=== PATIENT | male | born 1990 | race Two or more races ===

== ENCOUNTER 2023-01-01 06:10 | Day surgery (SDC) | payer OTHER ==
[~2023-01-01 06:10] MED LIST: CAPECITABINE PO; LEVOTHYROXINE25 MCG PO
[2023-01-01] MEDS ORDERED: TRAM1TAB98 PO (09:52)
== END 2023-01-01 12:05 | disposition home or self-care (01) ==
LOC: CIR.AMB 06:10
PROVIDERS: ATTEND Surgery
DX: C19 Malignant neoplasm of rectosigmoid junction (principal); C20 Malignant neoplasm of rectum; I10 Essential (primary) hypertension; Z20.822 Contact with and (suspected) exposure to COVID-19

== ENCOUNTER 2024-05-08 11:45 | Inpatient (IN) | payer OTHER ==
[~2024-05-08 11:45] MED LIST changes: +HYOSCYAMINE0.125 M1 SL; +IMODIUM A-D2 M2 PO; +PEPCID AC20 MG PO; +TRAM1TAB98 PO
[2024-05-15] MEDS ORDERED: OxyCODONE HCL 5 MG TABLET (ROXICODONE) PO PRN (13:15)
[2024-05-15] MEDS ORDERED: MORPHINE SULFATE 4 MG/ML CARTRIDGE IV PRN (13:15)
[2024-05-15] MEDS ORDERED: 0.9 % SODIUM CHLORIDE 1,000 ML IV SCH (13:15)
[2024-05-15] MEDS ORDERED: ONDANSETRON HCL 2 MG/ML VIAL IV PRN (13:15)
[2024-05-15] MEDS ORDERED: DEXTROSE 50 % IN WATER 0.5 G/ML DISP.SYRIN IV PRN (13:15)
[2024-05-15] MEDS ORDERED: CHLORHEXIDINE GLUCONATE 120 ML BOTTLE TOP ONE (13:30)
[2024-05-15] MEDS ORDERED: CEFTRIAXONE SODIUM 2,000 MG VIAL IV ONE (13:30)
[2024-05-15] MEDS ORDERED: METRONIDAZOLE/SODIUM CHLORIDE 500 MG/100 ML PIGGYBACK IV ONE (13:30)
[2024-05-15] MEDS ORDERED: ACETAMINOPHEN 500 MG GEL..CAP PO SCH (14:00)
[2024-05-15] MEDS ORDERED: MORPHINE SULFATE 4 MG/ML VIAL IV ONE (15:10)
[2024-05-15] MEDS ORDERED: POLYETHYLENE GLYCOL 3350 17 GM BLIST.PACK PO SCH (17:00)
[2024-05-15] MEDS ORDERED: GABAPENTIN 300 MG CAPSULE PO SCH (17:00)
[2024-05-15] MEDS ORDERED: HYOSCYAMINE SULFATE 0.125 MG TAB.SUBL SL SCH (17:00)
[2024-05-15 17:48] VITALS: BP 152/78
[2024-05-15 18:39] LABS: HEMATOCRIT 42.1 % (39.0-48.0); HEMOGLOBIN 14.2 g/dL (13-16.00); MEAN CELL VOLUME 88.1 fL (80.0-100.00); MEAN CORPUSCULAR HEMOGLOBIN 29.7 pg (27.00-32.0); MEAN CORPUSCULAR HGB CONC 33.7 g/dl (32.0-36.0); PLATELET COUNT 142 K/uL (150-450); RED BLOOD COUNT 4.79 M/uL (4.00-6.00); RED CELL DISTRIBUTION WIDTH 13.9 % (11.5-14.5)
[2024-05-15 18:43] LABS: ALBUMIN 3.7 gm/dL (3.4-5.0); CALCIUM 8.3 mg/dL (8.5-10.1); CREATININE SERUM 0.93 mg/dL (0.70-1.30); GFR 93.01; MAGNESIUM 1.7 mg/dL (1.8-2.4); PHOSPHOROUS 3.5 mg/dL (2.5-4.9); POTASSIUM 3.75 mEq/L (3.5-5.1)
[2024-05-15 19:02] LABS: ABG PH 7.403 (7.35-7.45); ABG PO2 100.1 mmHg (80-100); ABG pCO2 37.9 mmHg (35-45); BASE EXCESS -1.3 mmol/l; BICARBONATE 23.1 mmol/l (23-25); SaO2 97.7 %; Tco2 24.3 mmol/l; allen test SATISFACTORY; o2 21 %; puncture site RADIAL LEFT
[2024-05-15] MEDS ORDERED: CELECOXIB 200 MG CAPSULE PO SCH (21:00)
[2024-05-15] MEDS ORDERED: FAMOTIDINE/PF 20 MG/2 ML VIAL IV PUSH SCH (21:00)
[2024-05-16 00:22] VITALS: O2SAT 90
[2024-05-16 00:37] VITALS: BP 124/57; O2SAT 100
[2024-05-16 05:18] LABS: ALBUMIN 3.4 gm/dL (3.4-5.0); CREATININE SERUM 0.63 mg/dL (0.70-1.30); GFR 145.78; MAGNESIUM 1.8 mg/dL (1.8-2.4); PHOSPHOROUS 3.2 mg/dL (2.5-4.9); POTASSIUM 3.6 mEq/L (3.5-5.1)
[2024-05-16 05:43] LABS: HEMATOCRIT 39.3 % (39.0-48.0); HEMOGLOBIN 13.4 g/dL (13-16.00); MEAN CELL VOLUME 87.2 fL (80.0-100.00); MEAN CORPUSCULAR HEMOGLOBIN 29.6 pg (27.00-32.0); PLATELET COUNT 137 K/uL (150-450); RED BLOOD COUNT 4.51 M/uL (4.00-6.00); RED CELL DISTRIBUTION WIDTH 14.1 % (11.5-14.5)
[2024-05-16] MEDS ORDERED: ORPHENADRINE CITRATE 30 MG/ML AMPUL IV NR (11:00)
[2024-05-16 13:16] VITALS: O2SAT 98
[2024-05-16 16:32] VITALS: O2SAT 90
[2024-05-16 16:57] VITALS: BP 117/67; O2SAT 95
[2024-05-16] MEDS ORDERED: ENOXAPARIN SODIUM 40 MG/0.4 ML SYRINGE SUBCUTANEO SCH (17:00)
[2024-05-16] MEDS ORDERED: ORPHENADRINE CITRATE 30 MG/ML AMPUL IV SCH (21:00)
[2024-05-16 21:34] VITALS: O2SAT 89
[2024-05-17 00:43] VITALS: O2SAT 90
[2024-05-17 01:23] VITALS: BP 116/67; O2SAT 96
[2024-05-17 03:54] VITALS: O2SAT 96
[2024-05-17 06:59] LABS: HEMATOCRIT 40.4 % (39.0-48.0); HEMOGLOBIN 13.5 g/dL (13-16.00); MEAN CORPUSCULAR HEMOGLOBIN 29.3 pg (27.00-32.0); MEAN CORPUSCULAR HGB CONC 33.3 g/dl (32.0-36.0); PLATELET COUNT 132 K/uL (150-450); RED BLOOD COUNT 4.59 M/uL (4.00-6.00); RED CELL DISTRIBUTION WIDTH 13.8 % (11.5-14.5)
[2024-05-17 08:00] VITALS: BP 129/73; O2SAT 99
[2024-05-17 08:12] LABS: CALCIUM 8.4 mg/dL (8.5-10.1); CREATININE SERUM 0.65 mg/dL (0.70-1.30); GFR 140.62; MAGNESIUM 2.1 mg/dL (1.8-2.4); PHOSPHOROUS 2.1 mg/dL (2.5-4.9); POTASSIUM 3.67 mEq/L (3.5-5.1)
[2024-05-17] MEDS ORDERED: ENOXAPARIN SODIUM 40 MG/0.4 ML SYRINGE SUBCUTANEO SCH (09:00)
[2024-05-17 10:52] LABS: MANUAL PLATELET COUNT 152
[2024-05-17] MEDS ORDERED: POTASSIUM PHOS,M-BASIC-D-BASIC 3 MM/ML VIAL IV NR (11:00)
[2024-05-17] MEDS ORDERED: NEURONTIN300 MG PO (11:26)
[2024-05-17] MEDS ORDERED: INTESTINEX680 M1 PO (11:26)
[2024-05-17] MEDS ORDERED: A/F PAIN RELIE500 MG PO (11:26)
[2024-05-17 16:57] VITALS: BP 113/73; O2SAT 97
[2024-05-17 22:07] VITALS: BP 105/59; O2SAT 97
== END 2024-05-18 08:21 | disposition home or self-care (01) | DRG 331 ==
LOC: O/R 05-15 08:02 → SURH 05-15 08:02
PROVIDERS: Internal Medicine Geriatric Medicine; ADMIT Surgery; ATTEND Surgery
PROC: 0DBB4ZZ Excision of Ileum, Percutaneous Endoscopic Approach (ICD-10-PCS; principal; 2024-05-15 15:15)
PROC: 4A12X4Z Monitoring of Cardiac Electrical Activity, External Approach (ICD-10-PCS; 2024-05-16)
DX: C20 Malignant neoplasm of rectum (principal); Z43.2 Encounter for attention to ileostomy; K66.0 Peritoneal adhesions (postprocedural) (postinfection); G47.30 Sleep apnea, unspecified; E83.39 Other disorders of phosphorus metabolism

== ENCOUNTER 2024-05-20 15:37 | Inpatient (IN) | payer OTHER ==
[~2024-05-20] VITALS: Ht 182.9 cm; Wt 97.5 kg
[~2024-05-20 15:37] MED LIST changes: +A/F PAIN RELIE500 MG PO; +INTESTINEX680 M1 PO; +NEURONTIN300 MG PO
[2024-05-20] MEDS ORDERED: FAMOtidine 10 MG/ML (4ML VIAL) IV ONE (17:30)
[2024-05-20] MEDS ORDERED: PIPERACILLIN/TAZOBACTAM SODIUM 3.375 GM VIAL IV ONE (17:30)
[2024-05-20] MEDS ORDERED: 0.9 % SODIUM CHLORIDE 1,000 ML IV ONE (17:30)
[2024-05-20] MEDS ORDERED: ACETAMINOPHEN 325 MG TABLET PO ONE (17:30)
[2024-05-20 18:40] LABS: MEAN CELL VOLUME 85.4 fL (80.0-100.00); MEAN CORPUSCULAR HEMOGLOBIN 29.9 pg (27.00-32.0); PLATELET COUNT 178 K/uL (150-450); RED BLOOD COUNT 4.68 M/uL (4.00-6.00); RED CELL DISTRIBUTION WIDTH 14.2 % (11.5-14.5)
[2024-05-20 18:42] LABS: ERYTHROCYTE SEDIMENTATION RATE 57 mm/hr
[2024-05-20 18:56] LABS: PH,URINE 6.5 (5.0-8.0); URINE APPEARANCE Clear; URINE BILIRRUBIN Negative (NEGATIVE); URINE BLOOD Small; URINE COLOR Yellow; URINE GLUCOSE Negative (NEGATIVE); URINE LEUKOCYTE Negative; URINE NITRATE Negative; URINE PROTEIN Negative (NEGATIVE); URINE UROBILINOGEN 0.2 E.U./dl
[2024-05-20 18:59] LABS: URINE BACTERIA 6.2 uL (0.0-1933); URINE EPITHELIAL CELLS 1.5 uL (0.0-38.8); URINE WBC 3.2 uL (0.0-23.2)
[2024-05-20 19:12] LABS: URINE KETONE 80 (NEGATIVE)
[2024-05-20 19:17] LABS: ALBUMIN 3.4 gm/dL (3.4-5.0); BILIRUBIN TOTAL 0.65 mg/dL (0.3-1.2); CALCIUM 9.1 mg/dL (8.5-10.1); CREATININE SERUM 0.77 mg/dL (0.70-1.30); GFR 115.65; GLOBULINA 3.6 G/DL (2.4-3.5); POTASSIUM 3.33 mEq/L (3.5-5.1)
[2024-05-20 19:18] LABS: C-REACTIVE PROTEIN 22.7 MG/DL (0.00-0.29)
[2024-05-20] MEDS ORDERED: 0.9 % SODIUM CHLORIDE 1,000 ML IV SCH (22:45)
[2024-05-20] MEDS ORDERED: ACETAMINOPHEN 500 MG GEL..CAP PO PRN (22:45)
[2024-05-20] MEDS ORDERED: MEPERIDINE HCL/PF 25 MG/ML VIAL IM PRN (23:00)
[2024-05-20] MEDS ORDERED: MEPERIDINE HCL/PF 25 MG/ML VIAL IM ONE (23:00)
[2024-05-20] MEDS ORDERED: PROMETHAZINE HCL 25 MG/ML AMPUL IM ONE (23:00)
[2024-05-21] MEDS ORDERED: METRONIDAZOLE/SODIUM CHLORIDE 100 ML IV SCH (01:00)
[2024-05-21 02:28] LABS: INR 1.16; PARTIAL THROMBOPLASTIN TIME 31.8 SECONDS (22.0-34.0); PROTHROMBIN TIME 12.5 SECONDS (9.0-11.5)
[2024-05-21 03:08] VITALS: BP 124/73; O2SAT 99
[2024-05-21 08:11] VITALS: BP 96/60; O2SAT 98
[2024-05-21] MEDS ORDERED: FAMOTIDINE/PF 20 MG in 0.9 % SODIUM CHLORIDE 8 ML IV PUSH SCH (09:00)
[2024-05-21] MEDS ORDERED: CIPROFLOXACIN IN 5 % DEXTROSE 200 ML IV SCH (09:00)
[2024-05-21 15:51] LABS: CALCIUM 8.4 mg/dL (8.5-10.1); CHOL HDL RATIO 4.5 (0-5.0); CREATININE SERUM 0.58 mg/dL (0.70-1.30); GFR 160.38
[2024-05-21 16:00] LABS: POTASSIUM 2.9 mEq/L (3.5-5.1)
[2024-05-21 17:00] VITALS: BP 111/72; O2SAT 99
[2024-05-21] MEDS ORDERED: AMINO ACIDS 4.25 %/DEXTROSE 5% 1,000 ML PERIFERAL SCH (17:00)
[2024-05-22] VITALS: BP 120/70; O2SAT 98
[2024-05-22 08:00] VITALS: BP 94/61; O2SAT 97
[2024-05-22] MEDS ORDERED: POTASSIUM CHLORIDE IN WATER 40 MEQ/100 ML PIGGYBAG IV NR (09:00)
[2024-05-22] MEDS ORDERED: CHOLESTYRAMINE/ASPARTAME LIGHT 4 G/PKT PACKET PO NR (12:00)
[2024-05-22 16:03] VITALS: BP 130/75; O2SAT 100
[2024-05-22] MEDS ORDERED: CHOLESTYRAMINE/ASPARTAME LIGHT 4 G/PKT PACKET PO SCH (17:00)
[2024-05-23 00:25] VITALS: BP 120/65; O2SAT 99
[2024-05-23 06:48] LABS: HEMATOCRIT 34.2 % (39.0-48.0); HEMOGLOBIN 11.7 g/dL (13-16.00); MEAN CORPUSCULAR HEMOGLOBIN 29.8 pg (27.00-32.0); MEAN CORPUSCULAR HGB CONC 34.2 g/dl (32.0-36.0); PLATELET COUNT 196 K/uL (150-450); RED BLOOD COUNT 3.93 M/uL (4.00-6.00); RED CELL DISTRIBUTION WIDTH 13.7 % (11.5-14.5)
[2024-05-23 07:24] LABS: ALBUMIN 2.6 gm/dL (3.4-5.0); BILIRUBIN TOTAL 0.41 mg/dL (0.3-1.2); CALCIUM 8.3 mg/dL (8.5-10.1); CREATININE SERUM 0.61 mg/dL (0.70-1.30); GFR 151.31; GLOBULINA 3.1 G/DL (2.4-3.5); MAGNESIUM 2.1 mg/dL (1.8-2.4); PHOSPHOROUS 3.3 mg/dL (2.5-4.9); POTASSIUM 3.48 mEq/L (3.5-5.1); TOTAL PROTEIN 5.7 gm/dL (6.4-8.2)
[2024-05-23 08:00] VITALS: BP 110/56; O2SAT 98
[2024-05-23 17:00] VITALS: BP 121/67; O2SAT 97
[2024-05-23] MEDS ORDERED: FAMOtidine 20 MG TABLET PO SCH (17:00)
[2024-05-24 00:38] VITALS: BP 103/62; O2SAT 99
[2024-05-24] MEDS ORDERED: METRONIDAZOLE500 MG PO (08:04)
[2024-05-24] MEDS ORDERED: CIPRO500 MG PO (08:04)
[2024-05-24 09:00] VITALS: BP 118/70; O2SAT 99
[2024-05-24] MEDS ORDERED: INTESTINEX680 M1 PO (09:12)
== END 2024-05-24 09:57 | disposition home or self-care (01) | DRG 392 ==
LOC: ER 15:39 → SURH 22:52
PROVIDERS: General Practice; Surgery; ADMIT Surgery; ATTEND Surgery
PROC: BW21YZZ Computerized Tomography (CT Scan) of Abdomen and Pelvis using Other Contrast (ICD-10-PCS; principal; 2024-05-20)
DX: A09 Infectious gastroenteritis and colitis, unspecified (principal); E87.6 Hypokalemia; D72.829 Elevated white blood cell count, unspecified; Z98.890 Other specified postprocedural states